=== PATIENT | female | born 1960 | race Two or more races ===

== ENCOUNTER 2017-04-13 11:19 | Emergency (ER) | payer OTHER ==
[~2017-04-13] VITALS: Ht 170.2 cm; Wt 113.4 kg
[~2017-04-13 11:19] MED LIST: AVAPRO75 MG; LASIX20 MG
[2017-04-13] MEDS ORDERED: WELLBUTRIN XL300 MG (12:16)
[2017-04-13] MEDS ORDERED: ADVAIR HFA 230/12 GM (12:16)
[2017-04-13] MEDS ORDERED: SYNTHROID150 MCG (12:16)
[2017-04-13] MEDS ORDERED: KETO10TA2 PO (17:03)
== END 2017-04-13 17:10 | disposition home or self-care (01) ==
LOC: ER 11:19
DX: R51 Headache (principal)

== ENCOUNTER 2018-05-06 15:30 | Inpatient (IN) | payer OTHER ==
[~2018-05-06] VITALS: Ht 167.6 cm; Wt 113.4 kg
[~2018-05-06 15:30] MED LIST changes: +ADVAIR HFA 230/12 GM; +KETO10TA2 PO; +SYNTHROID150 MCG; +WELLBUTRIN XL300 MG
--- NOTE | 2018-05-06 15:59 | NUR ---
PACIENTE REFIERE TOS CONTINUA Y FIEBRE CON REFERIDO MEDICOP .
--- NOTE | 2018-05-06 17:10 | NUR ---
PACIENTE ALERTA Y ORIENTADA EVALUADA POR EL DR. BHANDARI SE ORIENTA A PACIENTE SOBRE TRATAMIENTO MEDICO SE EXTRAEN MUESRAS DE JAMAR Y SE ADMINISTRAN MEDICAMENTOS JOHNY ORDEN MEDICA BAJO MEDIDAS ASEPTICAS.
== END 2018-05-15 19:47 | disposition home or self-care (01) | DRG 202 ==
LOC: ER 15:30 → MEDI 19:06
PROVIDERS: ADMIT Internal Medicine
PROC: 3E0F7GC Introduction of Other Therapeutic Substance into Respiratory Tract, Via Natural or Artificial Opening (ICD-10-PCS; 2018-05-06)
PROC: 4A033R1 Measurement of Arterial Saturation, Peripheral, Percutaneous Approach (ICD-10-PCS; 2018-05-06)
PROC: 4A12X4Z Monitoring of Cardiac Electrical Activity, External Approach (ICD-10-PCS; 2018-05-06)
PROC: B246ZZZ Ultrasonography of Right and Left Heart (ICD-10-PCS; principal; 2018-05-07)
DX: J45.42 Moderate persistent asthma with status asthmaticus (principal); J44.1 Chronic obstructive pulmonary disease with (acute) exacerbation; J44.0 Chronic obstructive pulmonary disease with (acute) lower respiratory infection; I10 Essential (primary) hypertension; J20.8 Acute bronchitis due to other specified organisms; E03.8 Other specified hypothyroidism; J20.9 Acute bronchitis, unspecified; G47.33 Obstructive sleep apnea (adult) (pediatric); E11.9 Type 2 diabetes mellitus without complications; Z79.4 Long term (current) use of insulin; M94.0 Chondrocostal junction syndrome [Tietze]